=== PATIENT | male | born 1950 | race Caucasian/White ===

== ENCOUNTER 2019-12-05 04:03 | Observation (INO) | payer MEDICARE, OTHER ==
--- NOTE | 2019-12-05 04:13 | ED ---
Chest Pain HPI - General Stated Complaint: Chest Pain Time Seen by Provider: 12/05/19 04:11 Source: RN notes reviewed, old records reviewed Mode of arrival: EMS Limitations: no limitations - History of Present Illness Initial Comments: This is a 69-year-old male DF for evaluation regards to chest pain today. Patient has history of diabetes high blood pressure, remote History of smoking. Patient's here camping is weak and noticed chest pain we will to the bathroom tonight. The chest pain was substernal with some shortness of breath and some tightness heaviness difficulty raising his chest. No significant diaphoresis or sweating. No current shortness of breath. No history of heart disease no history of chest pain no history of prior stress test or heart evaluation MD Complaint: chest pain (Substernal) -: hour(s) Onset: during rest Pain Location: substernal Pain Radiation: none Quality: tightness, aching Consistency: constant Improves With: nothing Worsens With: nothing Anginal Symptoms: other (None) Other Symptoms: palpitations (. Patient having PVCs on EKG and monitor) Treatments Prior to Arrival: none - Related Data Allergies Allergy/AdvReac Type Severity Reaction Status Date / Time Sulfa (Sulfonamide Allergy Unknown Verified 12/05/19 04:40 Antibiotics) Review of Systems ROS Statement: Those systems with pertinent positive or pertinent negative responses have been documented in the HPI. ROS Other: All systems not noted in ROS Statement are negative. EKG Findings - EKG Comments: EKG Findings:: EKG is sinus rhythm of 66 FL 162 QRS 106 QTC 417 General Exam General appearance: alert, in no apparent distress Head exam: Present: atraumatic, normocephalic, normal inspection Eye exam: Present: normal appearance, PERRL, EOMI. Absent: scleral icterus, conjunctival injection, periorbital swelling ENT exam: Present: normal exam, mucous membranes moist Neck exam: Present: normal inspection. Absent: tenderness, meningismus, lymphadenopathy Respiratory exam: Present: normal lung sounds bilaterally. Absent: respiratory distress, wheezes, rales, rhonchi, stridor Cardiovascular Exam: Present: regular rate, normal rhythm, normal heart sounds. Absent: systolic murmur, diastolic murmur, rubs, gallop, clicks GI/Abdominal exam: Present: soft, normal bowel sounds. Absent: distended, tenderness, guarding, rebound, rigid Extremities exam: Present: normal inspection, full ROM, normal capillary refill. Absent: tenderness, pedal edema, joint swelling, calf tenderness Back exam: Present: normal inspection Neurological exam: Present: alert, oriented X3, CN II-XII intact Psychiatric exam: Present: normal affect, normal mood Skin exam: Present: warm, dry, intact, normal color. Absent: rash Course Vital Signs 12/05/19 04:05 Temperature 98.5 F Pulse Rate 80 Respiratory 18 Rate Blood Pressure 140/86 O2 Sat by Pulse 98 Oximetry - Reevaluation(s) Reevaluation #1: 12/05/19 05:56 Medical records reviewed Reevaluation #2: 12/05/19 05:56 Patient still with persistent chest pain - Consultations Consultation #1: Spoke with sound who agrees to admit this patient Chest Pain MDM - MDM 69 male evaluation of chest pain today. Patient does have significant cardiac risk including high blood pressure possibly borderline cholesterol diabetes. No history of smoking and his age. Patient will be admitted for cardiac observation Disposition Clinical Impression: Chest pain Disposition: ADMITTED IP TO THIS HOSP Condition: Undetermined Instructions (If sedation given, give patient instructions): Chest Pain (ED) Is patient prescribed a controlled substance at d/c from ED?: No Referrals: Geovani Pulliam DO [Primary Care Provider] - 1-2 days
[2019-12-05 05:00] LABS: Eosinophils % (A) 4 %; HCT 46.1 % (39.0-53.0); HGB 15.5 gm/dL (13.0-17.5); Lymphocytes % (A) 22 %; MCH 30.3 pg (25.0-35.0); MCHC 33.6 g/dL (31.0-37.0); Mean Platelet Volume 7.6; Monocytes % (A) 5 %; Neutrophils % (A) 66 %; Platelet Count 248 k/uL (150-450); RBC 5.12 m/uL (4.30-5.90); RDW 12.8 % (11.5-15.5); WBC 8.8 k/uL (3.8-10.6)
[2019-12-05 05:01] LABS: Basophils # (A) 0.1 k/uL (0-0.2); Basophils % (A) 1 %; Eosinophils # (A) 0.4 k/uL (0-0.7); Monocytes # (A) 0.5 k/uL (0-1.0); Neutrophils # (A) 5.8 k/uL (1.3-7.7)
--- NOTE | 2019-12-05 05:01 | XR ---
EXAMINATION TYPE: XR chest 2V DATE OF EXAM: 12/05/2019 COMPARISON: NONE HISTORY: Chest pain TECHNIQUE: FINDINGS: Heart and mediastinum are normal. Lungs are clear. Diaphragm is normal. There are chest leighton ds. Bony thorax is intact. Pulmonary vascularity is normal. IMPRESSION: Normal chest
[2019-12-05 05:09] LABS: ALT 23 U/L (4-49); AST 22 U/L (17-59); African American GFR (CKD) >90 (>60 ml/min/1.73 sqM); Albumin 4.1 g/dL (3.5-5.0); Alkaline Phosphatase 159 U/L (38-126); Anion Gap 11 mmol/L; Blood Urea Nitrogen 19 mg/dL (9-20); Calcium 9.5 mg/dL (8.4-10.2); Carbon Dioxide 19 mmol/L (22-30); Chloride 105 mmol/L (98-107); Glucose 173 mg/dL (74-99); Magnesium 1.7 mg/dL (1.6-2.3); Non-African American GFR(CKD) >90 (>60 ml/min/1.73 sqM); Partial Thromboplastin Time 27.6 sec (22.0-30.0); Potassium 3.5 mmol/L (3.5-5.1); Prothrombin Time 10.1 sec (9.0-12.0); Sodium 135 mmol/L (137-145); Total Bilirubin 0.6 mg/dL (0.2-1.3); Total Protein 6.5 g/dL (6.3-8.2)
[2019-12-05] MEDS ORDERED: NITROGLYCERIN SL TABS 0.4 MG TAB SUBLINGUAL PRN (05:53)
[2019-12-05] MEDS ORDERED: ASPIRIN 81 MG PO STA (05:53)
[2019-12-05] MEDS ORDERED: MORPHINE SULFATE 4 MG/ML SYRINGE IV PRN (05:53)
[2019-12-05] MEDS ORDERED: HEPARIN SODIUM,PORCINE 5,000 UNIT/ML 1 ML VIAL IV PRN (08:20)
[2019-12-05] MEDS ORDERED: HEPARIN SODIUM,PORCINE 5,000 UNIT/ML 1 ML VIAL IV ONE (08:20)
[2019-12-05] MEDS ORDERED: ALPRAZolam 0.5 MG TAB PO PRN (08:22)
[2019-12-05] MEDS ORDERED: ALPRAZolam 0.25 MG TAB PO PRN (08:22)
[2019-12-05] MEDS ORDERED: SODIUM CHLORIDE 0.9% 1,000 ML in EMPTY BAG 1 BAG IV ONE (08:22)
[2019-12-05] MEDS ORDERED: HEPARIN SOD,PORK IN 0.45% NACL 25,000 UNIT in 0.45% NACL 1 250ML.BAG IV SCH (08:30)
[2019-12-05 08:38] LABS: Basophils # (A) 0.1 k/uL (0-0.2); Basophils % (A) 1 %; Eosinophils # (A) 0.2 k/uL (0-0.7); Eosinophils % (A) 2 %; HCT 46.5 % (39.0-53.0); HGB 15.8 gm/dL (13.0-17.5); Lymphocytes % (A) 22 %; MCH 30.7 pg (25.0-35.0); MCHC 33.9 g/dL (31.0-37.0); MCV 90.4 fL (80.0-100.0); Mean Platelet Volume 7.6; Monocytes # (A) 0.5 k/uL (0-1.0); Monocytes % (A) 5 %; Neutrophils # (A) 6.3 k/uL (1.3-7.7); Neutrophils % (A) 70 %; Platelet Count 232 k/uL (150-450); RBC 5.15 m/uL (4.30-5.90); RDW 12.6 % (11.5-15.5)
[2019-12-05 08:42] LABS: Cholesterol 105 mg/dL (<200); HDL Cholesterol 45 mg/dL (40-60); LDL Cholesterol,Calculated 40 mg/dL (0-99); Triglycerides 102 mg/dL (<150)
[2019-12-05 08:53] LABS: Partial Thromboplastin Time 28.2 sec (22.0-30.0); Prothrombin Time 10.2 sec (9.0-12.0)
[2019-12-05] MEDS ORDERED: amLODIPine 10 MG TAB PO SCH (09:00)
[2019-12-05] MEDS ORDERED: METOPROLOL TARTRATE 25 MG TAB PO SCH (09:00)
[2019-12-05] MEDS: LOSARTAN 50 MG TAB PO SCH (09:22)
[2019-12-05] MEDS: METOPROLOL TARTRATE 12.5 MG TAB PO SCH ×2 (09:22→20:44)
[2019-12-05] MEDS: hydrALAZINE HCL 50 MG TAB PO SCH ×2 (09:22→20:42)
--- NOTE | 2019-12-05 10:17 | P.HPIM ---
History of Present Illness H&P Date: 12/05/19 Chief Complaint: Chest pain This is a 69-year-old white male who reported to the hospital with substernal chest pain. He woke up at around 3:30 AM to go to the bathroom and noted moderate instability chest pain. He describes the pain as dull substernal radiating. He denies subjective fever or chills, no shortness of breath, no dizziness no loss of consciousness. He denies abdominal pain nausea or vomiting. He has few intermittent dry coughs that spontaneously resolved. The time of examination patient is in bed, he does not appear to be in distress, his is at bedside. Review of Systems 10 systems reviewed, pertinent positive and negative findings as in HPI, no nausea or vomiting. Chest pain resolved. Past Medical History Past Medical History: Diabetes Mellitus, Hypertension Additional Past Medical History / Comment(s): Pt states he has had hypertension since 2003. Pt states he has Type 2 diabetes and takes metformin to control it. History of Any Multi-Drug Resistant Organisms: None Reported Past Surgical History: Prostate Surgery Additional Past Surgical History / Comment(s): Pt states he had his prostate removed on April 12, 2019. Past Psychological History: Anxiety Smoking Status: Former smoker Past Alcohol Use History: Rare Past Drug Use History: None Reported Medications and Allergies Home Medications Medication Instructions Recorded Confirmed Type Atorvastatin [Lipitor] 10 mg PO HS 12/05/19 12/05/19 History Losartan Potassium 100 mg PO DAILY 12/05/19 12/05/19 History amLODIPine [Norvasc] 10 mg PO DAILY 12/05/19 12/05/19 History hydrALAZINE HCL [Apresoline] 50 mg PO BID 12/05/19 12/05/19 History metFORMIN HCL 850 mg PO BID 12/05/19 12/05/19 History Allergies Allergy/AdvReac Type Severity Reaction Status Date / Time Sulfa (Sulfonamide Allergy Unknown Verified 12/05/19 08:02 Antibiotics) Physical Exam Vitals: Vital Signs Temp Pulse Pulse Resp BP BP Pulse Ox 12/05/19 09:00 98.1 F 77 16 151/89 98 12/05/19 06:58 98.1 F 67 18 132/72 100 12/05/19 05:57 97.7 F 63 18 137/86 97 12/05/19 04:05 98.5 F 80 18 140/86 98 Intake and Output 07/29/20 07/30/20 07/30/20 22:59 06:59 14:59 Other: # Voids 1 Weight 102.058 kg Constitutional: No acute distress, conversant, pleasant Eyes: Anicteric sclerae, moist conjunctiva, no lid-lag, PERRLA ENMT: NC/AT,Oropharynx clear, no erythema, exudates Neck:Supple, FROM, no masses, or JVD, No carotid bruits; No thyromegaly Lungs: Clear to auscultation, Clear to percussion, Normal respiratory effort, no accessory muscle use Cardiovascular: Heart regular in rate and rhythm, No murmurs, gallops, or rubs no peripheral edema Abdominal: Soft Nontender, nom distended, no guarding, no rebound or rigidity, Normoactive bowel sounds ,obese Skin: Normal temperature, tone, texture, turgor, No induration No subcutaneous nodules, No rash, lesions, No ulcers Extremities:No digital cyanosis No clubbing, Pedal pulses intact and symmetrical Radial pulses intact and symmetrical Normal gait and station, No calf tenderness Psychiatric: Alert and oriented to person, place and time, Appropriate affect Intact judgement Neuro: Muscles Strength 5/5 in all 4 extremities, Sensation to light touch grossly present throughout, Cranial nerves II-XII grossly intact. No focal sensory deficits Results CBC & Chem 7: 12/05/19 07:31 12/05/19 04:53 Labs: Abnormal Lab Results - Last 24 Hours (Table) 12/05/19 Range/Units 04:53 Sodium 135 L (137-145) mmol/L Carbon Dioxide 19 L (22-30) mmol/L Glucose 173 H (74-99) mg/dL Alkaline Phosphatase 159 H (38-126) U/L Thrombosis Risk Factor Assmnt - Choose All That Apply Any of the Below Risk Factors Present?: Yes Each Factor Represents 1 point: Obesity (BMI >25) Other Risk Factors: Yes Each Risk Factor Represents 2 Points: Age 61-74 years Thrombosis Risk Factor Assessment Total Risk Factor Score: 3 Thrombosis Risk Factor Assessment Level: Moderate Risk Assessment and Plan Plan: 1. Chest pain number intermittent, unspecified etiology: Negative cardiac enzymes so far, continue to check cardiac enzymes, negative d-dimer, continue on telemetry, cardiology consultation, input appreciated, plan for cardiac catheterization today. Patient is on heparin drip morphine after listening, aspirin and statin losartan and metoprolol. 2. Hyperlipidemia: Continue atorvastatin 3. Essential hypertension: Continue outpatient medications losartan hydralazine metoprolol and Norvasc 4. Diabetes type 2 with hyperglycemia: Place on insulin sliding scale 5. Suspected obstructive sleep apnea: He will need sleep study evaluation as an outpatient 6. Mild metabolic acidosis, unspecified significance: Bicarbonate 19, monitor. 7. Obesity: BMI 32.3 Treatment Plan discussed with the patient and his at bedside. DVT prophylaxis: Heparin drip Disposition: Home in 1-2 days, pending clinical progression
[2019-12-05] MEDS ORDERED: IV FLUID CONTINUATION 900 ML IV ONE (10:44)
[2019-12-05] MEDS ORDERED: MIDAZOLAM 2 MG/2 ML VIAL IV ONE (10:59)
--- NOTE | 2019-12-05 11:00 | ECHOF ---
Referral Reason:chest pain MEASUREMENTS -------- HEIGHT: 177.8 cm WEIGHT: 102.1 kg BP: RVIDd: 3.1 cm (< 3.3) IVSd: 1.5 cm (0.6 - 1.1) LVIDd: 3.8 cm (3.9 - 5.3) LVPWd: 1.4 cm (0.6 - 1.1) IVSs: 1.8 cm LVIDs: 1.3 cm LVPWs: 1.9 cm LAESV Index (A-L): 27.22 ml/m Ao Diam: 3.2 cm (2.0 - 3.7) AV Cusp: 1.8 cm (1.5 - 2.6) LA Diam: 3.4 cm (2.7 - 3.8) MV EXCURSION: 18.048 mm (> 18.000) MV EF SLOPE: 66 mm/s (70 - 150) EPSS: 0.2 cm MV E Sarbjit: 0.92 m/s MV DecT: 214 ms MV A Sarbjit: 1.08 m/s MV E/A Ratio: 0.85 AR PHT: 286 ms RAP: 5.00 mmHg RVSP: 19.39 mmHg FINDINGS -------- Sinus rhythm with extra systolic beats. This was a technically adequate study. The left ventricular size is normal. There is moderate concentric left ventricular hypertrophy. O verall left ventricular systolic function is normal with, an EF between 55 - 60 %. Normal LAP. Grad e 1 Diastolic Dysfunction. The right ventricle is normal in size. The left atrial size is normal. Normal LA size by volume 22+/-6 ml/m2. The right atrial size is normal. Interatrial and interventricular septum intact. The aortic valve is trileaflet and appears structurally normal. Trace amount of aortic regurgitatio n. The mitral valve is normal. The mitral valve leaflets are mildly thickened. Mild mitral regurgita tion is present. The tricuspid valve appears structurally normal. Mild tricuspid regurgitation present. Right vent ricular systolic pressure is normal at < 35 mmHg. There is no pulmonic regurgitation present. The aortic root size is normal. Normal inferior vena cava with normal inspiratory collapse consistent with estimated right atrial pre ssure of 5 mmHg. There is no pericardial effusion. CONCLUSIONS -------- 1. There is moderate concentric left ventricular hypertrophy. 2. Overall left ventricular systolic function is normal with, an EF between 55 - 60 %. 3. Normal LAP. Grade 1 Diastolic Dysfunction. 4. Trace amount of aortic regurgitation. 5. The mitral valve leaflets are mildly thickened. 6. Mild mitral regurgitation is present. 7. Mild tricuspid regurgitation present. INFANTRY OPERATIONS SPECIALIST: Va Knight RDCS
[2019-12-05] MEDS ORDERED: LIDOCAINE 1% INJ 10MG/ML (20 ML MDV) SQ ONE (11:02)
[2019-12-05] MEDS ORDERED: VERAPAMIL SYRINGE (5 MG/10 ML) INTRAARTER ONE (11:04)
[2019-12-05] MEDS ORDERED: HEPARIN SODIUM 1,000 UN/ML (10ML VL) IV ONE (11:05)
--- NOTE | 2019-12-05 11:18 | P.CRDCN ---
History of Present Illness History of present illness: HISTORY OF PRESENTING ILLNESS This is a pleasant 69-year-old male past medical history significant for hypertension, dyslipidemia and diabetes mellitus. 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 We have been asked to see in consultation for chest pain. He lives in [facility] and is here in the area camping for the week. He states he woke up last night around 3 AM with pain in the midsternal region. He got up to use the bathroom and felt short of breath and diaphoretic. The discomfort in his chest persisted for approximately 20 minutes prompting him to come to the hospital for further evaluation. There was no radiation to the arm, back, neck or jaw. He denies nausea, vomiting or palpitations. His chest pain has since subsided and he is seen resting comfortably in the room with his at the bedside. DIAGNOSTICS EKG reveals sinus mechanism with incomplete left bundle branch block. There is no old EKG for comparison. Chest xray negative for an acute cardiopulmonary process. Laboratory reviewed, CBC unremarkable, d-dimer 0.47, sodium 135, potassium 3.5, creatinine 0.8, magnesium 1.7, first 2 troponins are negative and 30 0.042. NT proBNP 145, LDL 40 and HDL 45. Current cardiac medications include hydralazine 50 mg twice a day, amlodipine 10 mg daily, losartan 100 mg daily and atorvastatin 10 mg at bedtime. REVIEW OF SYSTEMS At the time of my exam: CONSTITUTIONAL: Denies fever or chills. CARDIOVASCULAR: Denies chest pain, shortness of breath, orthopnea, PND or palpitations. RESPIRATORY: Denies cough. GASTROINTESTINAL: Denies abdominal pain, diarrhea, constipation, nausea or vomiting. MUSCULOSKELETAL: Denies myalgias. NEUROLOGIC: Denies numbness, tingling or weakness. ENDOCRINE: Denies fatigue, weight change, polydipsia or polyurina. GENITOURINARY: Denies burning, hematuria or urgency with micturation. HEMATOLOGIC: Denies history of anemia or bleeding. PHYSICAL EXAMINATION Blood pressure 151/89 heart rate 77 afebrile and maintaining oxygen saturation on room air. CONSTITUTIONAL: No apparent distress. HEENT: Head is normocephalic. Pupils are equal, round. Sclerae anicteric. Mucous membranes of the mouth are moist. No JVD. No carotid bruit. CHEST EXAMINATION: Lungs are clear to auscultation. No chest wall tenderness is noted on palpation or with deep breathing. HEART EXAMINATION: Regular rate and rhythm. S1, S2 heard. No murmurs, gallops or rub. ABDOMEN: Soft, nontender. Positive bowel sounds. EXTREMITIES: 2+ peripheral pulses, no lower extremity edema and no calf tenderness. NEUROLOGIC EXAMINATION: Patient is awake, alert and oriented x3. ASSESSMENT Unstable angina Non-ST elevated myocardial infarction Hypertension Dyslipidemia Diabetes mellitus Obesity, BMI 32 PLAN Recommend proceeding with cardiac catheterization. I have discussed the risks, benefits and alternative therapies for the above-mentioned procedure and for both sedation/analgesia as well as necessary blood product administration, if indicated, as they pertain to this patient. The patient has indicated understanding and acceptance of the risks and procedures discussed. Questions have been answered appropriately and he is agreeable to move forward with the above stated procedure. Initiate Lopressor 12.5 mg twice a day and heparin infusion. Obtain 2-D echocardiogram and Doppler study to assess cardiac structure and function. Further recommendations to follow based upon clinical course. Thank you kindly for this consultation. Nurse Practitioner note has been reviewed, I agree with a documented findings and plan of care. Patient was seen and examined. Past Medical History Past Medical History: Diabetes Mellitus, Hypertension Additional Past Medical History / Comment(s): Pt states he has had hypertension since 2004. Pt states he has Type 2 diabetes and takes metformin to control it. History of Any Multi-Drug Resistant Organisms: None Reported Past Surgical History: Prostate Surgery Additional Past Surgical History / Comment(s): Pt states he had his prostate removed on April 12, 2019. Past Psychological History: Anxiety Smoking Status: Former smoker Past Alcohol Use History: Rare Past Drug Use History: None Reported Medications and Allergies Home Medications Medication Instructions Recorded Confirmed Type Atorvastatin [Lipitor] 10 mg PO HS 12/05/19 12/05/19 History Losartan Potassium 100 mg PO DAILY 12/05/19 12/05/19 History amLODIPine [Norvasc] 10 mg PO DAILY 12/05/19 12/05/19 History hydrALAZINE HCL [Apresoline] 50 mg PO BID 12/05/19 12/05/19 History metFORMIN HCL 850 mg PO BID 12/05/19 12/05/19 History Allergies Allergy/AdvReac Type Severity Reaction Status Date / Time Sulfa (Sulfonamide Allergy Unknown Verified 12/05/19 08:02 Antibiotics) Physical Exam Vitals: Vital Signs Temp Pulse Pulse Resp BP BP Pulse Ox 12/05/19 06:58 98.1 F 67 18 132/72 100 12/05/19 05:57 97.7 F 63 18 137/86 97 12/05/19 04:05 98.5 F 80 18 140/86 98 Intake and Output 12/04/19 12/05/19 12/05/19 22:59 06:59 14:59 Other: Weight 102.058 kg Results 12/05/19 07:31 12/05/19 04:53 Cardiac Enzymes 12/05/19 12/05/19 Range/Units 04:53 04:53 AST 22 (17-59) U/L Troponin I <0.012 (0.000-0.034) ng/mL Coagulation 12/05/19 Range/Units 04:53 PT 10.1 (9.0-12.0) sec APTT 27.6 (22.0-30.0) sec CBC 12/05/19 Range/Units 04:53 WBC 8.8 (3.8-10.6) k/uL RBC 5.12 (4.30-5.90) m/uL Hgb 15.5 (13.0-17.5) gm/dL Hct 46.1 (39.0-53.0) % Plt Count 248 (150-450) k/uL Comprehensive Metabolic Panel 12/05/19 Range/Units 04:53 Sodium 135 L (137-145) mmol/L Potassium 3.5 (3.5-5.1) mmol/L Chloride 105 (98-107) mmol/L Carbon Dioxide 19 L (22-30) mmol/L BUN 19 (9-20) mg/dL Creatinine 0.80 (0.66-1.25) mg/dL Glucose 173 H (74-99) mg/dL Calcium 9.5 (8.4-10.2) mg/dL AST 22 (17-59) U/L ALT 23 (4-49) U/L Alkaline Phosphatase 159 H (38-126) U/L Total Protein 6.5 (6.3-8.2) g/dL Albumin 4.1 (3.5-5.0) g/dL Current Medications Generic Name Dose Route Start Last Admin Trade Name Freq PRN Reason Stop Dose Admin Aspirin 325 mg 12/06/19 09:00 Aspirin PO DAILY [facility] Metoprolol Tartrate 25 mg 12/05/19 09:00 Lopressor PO BID DEEPALI Morphine Sulfate 4 mg 12/05/19 05:53 Morphine Sulfate (Inj) IV Q4HR PRN Chest Pain Nitroglycerin 0.4 mg 12/05/19 05:53 Nitrostat SUBLINGUAL Q5M PRN Chest Pain Intake and Output 12/04/19 12/05/19 12/05/19 22:59 06:59 14:59 Other: Weight 102.058 kg 12/05/19 04:53 12/05/19 04:53
[2019-12-05] MEDS ORDERED: BIVALIRUDIN 250 MG in SODIUM CHLORIDE 0.9% 50 ML IV ONE (11:21)
[2019-12-05] MEDS ORDERED: BIVALIRUDIN BOLUS 250 MG/50 ML IV ONE (11:21)
[2019-12-05] MEDS ORDERED: IOPAMIDOL-370 100ML BTL INJ ONE ×3 (11:26→12:01)
[2019-12-05] MEDS: NITROGLYCERIN 1000MCG/10ML SYRINGE INTRACORON ONE ×3 (11:29→12:00)
[2019-12-05] MEDS ORDERED: CLOPIDOGREL 75 MG TAB ONE (12:09)
[2019-12-05] MEDS ORDERED: CLOPIDOGREL 75 MG TAB PO ONE (12:16)
[2019-12-05] MEDS: SODIUM CHLORIDE 0.9% 1,000 ML IV SCH ×2 (12:32→16:38)
[2019-12-05 12:36] LABS: Glucose,Whole Blood 139 mg/dL (75-99)
[2019-12-05 16:27] LABS: Glucose,Whole Blood 142 mg/dL (75-99)
[2019-12-05] MEDS: INSULIN ASPART (NovoLOG) 100 UNIT/ML VIAL SQ SCH ×2 (16:41→20:48)
--- NOTE | 2019-12-05 17:18 | CC ---
CARDIAC CATHETERIZATION REPORT CARDIAC CATHETERIZATION AND PCI REPORT: Performed by Dr. Ashley Farah. DATE OF SERVICE: 12/05/2019 PROCEDURE: 1. Left heart catheterization and coronary angiography. 2. PTCA and stenting of the major diagonal branch with a drug-eluting stent. 3. PTCA and stenting of mid circumflex with a drug-eluting stent. PERFORMED BY: Dr. Ashley Farah. ANESTHESIA: Moderate conscious sedation time was 66 minutes. The patient was administered Versed. Oxygen saturation, hemodynamics and EKG were monitored closely. CLINICAL INFORMATION: Boyd Sandoval is a 69-year-old gentleman with history of hypertension, diabetes, and hyperlipidemia who was camping here in [place] and developed chest pain, came into the hospital yesterday. No troponin rise, but symptoms were classic. He has significant risk factors, advised coronary angiography after due discussion regarding risks, benefits, and options. PROCEDURE NOTE: Under local anesthesia and strict aseptic precautions a 6-Thai introducer placed in the right radial artery. Using a JL3.5 and a JR4 catheter, I performed coronary angiography and the same right catheter was used to check LV pressures. LV gram was not performed. Following this, I performed the intervention procedure of the major diagonal branch and mid circumflex. I then applied a TR band as per protocol with good saturation in the fingers of the right hand was about 93%. Good sagittal finger of the right hand of 93%. Patient tolerated the procedure well. CARDIAC CATHETERIZATION FINDINGS: Left ventricular end-diastolic pressure was 10 mmHg without any gradient across the aortic valve. CORONARY ANGIOGRAPHY FINDINGS: RIGHT CORONARY ARTERY: Dominant vessel has no significant disease in the proximal and midportion and distally bifurcates into PDA and PLV. PLV has a 50% to 55% ostial lesion as it comes off from the dominant RCA. The PDA has no ostial lesion, but in the mid and distal portion there are multiple areas of narrowing and the narrowing extends almost to the tip of the vessel and there is about 80%-90% distally. PDA is therefore a diffusely diseased vessel in the mid and distal portion. PLV has a 50% to 55% proximal lesion and this is a dominant RCA. LEFT MAIN CORONARY ARTERY: Short patent vessel, free of significant disease that bifurcates immediately into LAD and circumflex. There is moderate calcification in the left main noted. LEFT ANTERIOR DESCENDING CORONARY ARTERY: Good caliber vessel gives off a high first diagonal branch which appears small in caliber, has a 99% stenosis with sluggish flow. Second diagonal is free of significant disease but appears to be diffusely diseased vessel. LAD has multiple areas of 30% to 35% narrowing but no critical stenosis, runs all the way to the apex and curves over the apex to supply the inferoapical portion of left ventricle. The diagonal therefore is a fair caliber vessel, has a 99% proximal stenosis with sluggish flow. LEFT POSTERIOR CIRCUMFLEX CORONARY ARTERY: Nondominant vessel, gives off a first obtuse marginal that has diffuse disease and distally bifurcates into 2 branches and superior and inferior branch. The inferior branch has a 95% stenosis, smaller in caliber and distribution. The superior branch has a 40% narrowing. After the origin of this obtuse marginal, the circumflex runs in the AV groove and there is a 95% stenosis and from this comes off a left atrial circumflex branch and a posterolateral branch. Mid circumflex therefore has a 95% stenosis. LEFT VENTRICULOGRAM: Left ventriculogram was not performed. FINAL IMPRESSION: This patient has a right-dominant system, normal filling pressures. no gradient across the aortic valve. The PDA branch of our dominant RCA has diffuse disease in the mid and distal portion. The major diagonal branch of LAD has a 95% stenosis and mid circumflex has a 95% stenosis. There are minor irregularities in other vessels. There is moderate calcification throughout. LV gram was not performed. RECOMMENDATIONS: I recommended PCI of the major diagonal and circumflex and proceeded to perform this in the same setting. PCI PROCEDURE DETAILS: A left 3.5 curved Patrice catheter was used to cannulate the left coronary artery. This was a 6-Thai guide catheter. A run-through wire was used to cross the lesion in the diagonal. Predilatation was performed with a 2.25 caliber 12 mm NC Trek balloon. I then deployed a 12 mm long 2.25 caliber Xience stent. The midportion was not fully expanded. I took a 2.5 caliber 8 mm NC Trek balloon and gave multiple inflations within the proximal 2/3 of the stent. Excellent angiographic result was achieved. There was still a small area which I could not open completely with the residual stenosis of 10%. Excellent angiographic result was achieved. I then turned my attention into the circumflex branch. The same wire was advanced to the circumflex branch. A 2.25 caliber 12 NC Trek balloon was used to pre-dilate the lesion. I then deployed an 8 mm long 2.25 caliber Xience stent at the ostium of the circumflex marginal right after it takes off. Excellent angiographic result was achieved. Stent was deployed at 11 atmospheres. Patient had chest discomfort on both occasions, but no EKG changes. Excellent angiographic result without complication was achieved. The patient received Angiomax bolus and infusion as per protocol and he also received 600 mg of Plavix. Excellent angiographic result was achieved of both major diagonal branch and circumflex, with drug-eluting stents. I expect the patient to be discharged tomorrow. Results were discussed with the patient and his . MMODL / IJN: [id number] /
[2019-12-05] MEDS ORDERED: ACETAMINOPHEN TAB 325 MG TAB PO PRN (17:34)
[2019-12-05 20:37] LABS: Glucose,Whole Blood 119 mg/dL (75-99)
[2019-12-05] MEDS ORDERED: ATORVASTATIN 80 MG TAB PO SCH (21:00)
[2019-12-05] MEDS ORDERED: ATORVASTATIN 10 MG TAB PO SCH (21:00)
[2019-12-06 06:39] LABS: Glucose,Whole Blood 140 mg/dL (75-99)
[2019-12-06] MEDS: INSULIN ASPART (NovoLOG) 100 UNIT/ML VIAL SQ SCH (06:42)
[2019-12-06 07:31] LABS: Basophils # (A) 0.1 k/uL (0-0.2); Basophils % (A) 1 %; Eosinophils # (A) 0.3 k/uL (0-0.7); Eosinophils % (A) 3 %; HCT 50.5 % (39.0-53.0); HGB 16.9 gm/dL (13.0-17.5); Lymphocytes # (A) 2.5 k/uL (1.0-4.8); Lymphocytes % (A) 25 %; MCH 30.4 pg (25.0-35.0); MCHC 33.4 g/dL (31.0-37.0); Mean Platelet Volume 7.3; Monocytes # (A) 0.6 k/uL (0-1.0); Monocytes % (A) 6 %; Neutrophils # (A) 6.4 k/uL (1.3-7.7); Neutrophils % (A) 63 %; Platelet Count 280 k/uL (150-450); RBC 5.55 m/uL (4.30-5.90); RDW 12.7 % (11.5-15.5); WBC 10.1 k/uL (3.8-10.6)
[2019-12-06 07:51] VITALS: BP 141/85; PULSE 67; RESP 16; TEMP 98.1
[2019-12-06] MEDS: hydrALAZINE HCL 50 MG TAB PO SCH (07:51)
[2019-12-06 07:52] LABS: ALT 28 U/L (4-49); AST 30 U/L (17-59); African American GFR (CKD) >90 (>60 ml/min/1.73 sqM); Albumin 4.5 g/dL (3.5-5.0); Alkaline Phosphatase 98 U/L (38-126); Anion Gap 10 mmol/L; Blood Urea Nitrogen 10 mg/dL (9-20); Calcium 9.7 mg/dL (8.4-10.2); Carbon Dioxide 23 mmol/L (22-30); Chloride 106 mmol/L (98-107); Glucose 141 mg/dL (74-99); Non-African American GFR(CKD) >90 (>60 ml/min/1.73 sqM); Potassium 4.1 mmol/L (3.5-5.1); Sodium 139 mmol/L (137-145); Total Bilirubin 1.1 mg/dL (0.2-1.3)
[2019-12-06] MEDS: LOSARTAN 50 MG TAB PO SCH (07:52)
[2019-12-06] MEDS: METOPROLOL TARTRATE 12.5 MG TAB PO SCH (07:52)
[2019-12-06] MEDS ORDERED: amLODIPine 5 MG TAB PO SCH (09:00)
[2019-12-06] MEDS ORDERED: ASPIRIN 325 MG TAB PO SCH (09:00)
[2019-12-06] MEDS ORDERED: ASPIRIN 81 MG PO SCH (09:00)
[2019-12-06] MEDS ORDERED: CLOPIDOGREL 75 MG TAB PO SCH (09:00)
--- NOTE | 2019-12-06 10:06 | P.PN ---
Subjective HISTORY OF PRESENTING ILLNESS This is a pleasant 69-year-old male past medical history significant for hypertension, dyslipidemia and diabetes mellitus. He denies prior history of coronary artery disease and does not follow with a stunt person for any reason. He underwent cardiac catheterization via the right radial artery yesterday revealing RCA with no significant disease, PLV with 50-55% ostial lesion, PDA with multiple areas of narrowing in the mid to distal portion, left main no significant disease, LAD with multiple areas of narrowing approximately 30-35% with no critical stenosis, first diagonal branch with a 99% stenosis, circumflex artery with a 95% stenosis in the midportion, he underwent successful PTCA and stenting of the major diagonal branch and the mid circumflex. He has been initiated on dual antiplatelet therapy. He is seen and examined sitting up in bed in no acute distress. He has no symptoms of chest discomfort, shortness of breath, dizziness or palpitations. Repeat EKG this morning reveals sinus m echanism with no ST or T wave abnormalities noted, heart rate of 59. Echocardiogram obtained reveals preserved LV systolic function with ejection fraction 55-60%, grade 1 diastolic dysfunction, mild MR and mild TR. PHYSICAL EXAMINATION CONSTITUTIONAL: No apparent distress. HEENT: Head is normocephalic. Pupils are equal, round. Sclerae anicteric. Mucous membranes of the mouth are moist. No JVD. No carotid bruit. CHEST EXAMINATION: Lungs are clear to auscultation. No chest wall tenderness is noted on palpation or with deep breathing. HEART EXAMINATION: Regular rate and rhythm. S1, S2 heard. No murmurs, gallops or rub. EXTREMITIES: 2+ peripheral pulses, no lower extremity edema and no calf tenderness. ASSESSMENT Unstable angina Non-ST elevated myocardial infarction Hypertension Dyslipidemia Diabetes mellitus Obesity, BMI 32 PLAN Stable for discharge on current medical regimen. The importance of dual antiplatelet therapy discussed in great detail with the patient. Prescriptions haven't sent to the pharmacy. He will follow-up in the office with Dr. Farah in one week. Nurse Practitioner note has been reviewed, I agree with a documented findings and plan of care. Patient was seen and examined. Objective - Vital Signs Vital signs: Vital Signs Temp 98.1 F 12/06/19 07:50 Pulse 67 12/06/19 08:02 Resp 16 12/06/19 08:02 BP 141/85 12/06/19 07:50 Pulse Ox 98 07/31/20 07:50 Intake & Output 12/05/19 12/06/19 12/06/19 18:59 06:59 18:59 Intake Total 815 Output Total 575 Balance 240 Intake: IV 450 Oral 365 Output: Urine 575 Other: Voiding Method Toilet Toilet Toilet # Voids 3 1 - Labs CBC & Chem 7: 12/06/19 07:10 12/06/19 07:10 Labs: Abnormal Lab Results - Last 24 Hours (Table) 12/05/19 12/05/19 12/05/19 Range/Units 10:12 12:34 16:25 Glucose (74-99) mg/dL POC Glucose (mg/dL) 139 H 142 H (75-99) mg/dL Troponin I 0.042 H* (0.000-0.034) ng/mL 12/05/19 12/06/19 12/06/19 Range/Units 20:36 06:37 07:10 Glucose 141 H (74-99) mg/dL POC Glucose (mg/dL) 119 H 140 H (75-99) mg/dL Troponin I (0.000-0.034) ng/mL
[2019-12-06 11:31] LABS: Glucose,Whole Blood 140 mg/dL (75-99)
--- NOTE | 2019-12-06 20:53 | P.DS ---
Providers Date of admission: 12/05/19 05:53 Expected date of discharge: 12/06/19 Attending physician: Rito Read MD Consults: 12/05/19 05:53 Consult Physician Urgent Consulting Provider: Severino Rios Consult Reason/Comments: cp Do you want consulting provider notified?: Yes Primary care physician: Geovani Pulliam DO Hospital Course: Discharge Diagnosis: Non-ST segment elevated myocardial infarction Hypertension Dyslipidemia Diabetes mellitus type 2 Obesity with BMI 32 Hospital Course: Patient is a 69-year-old male with diabetes, hypertension, and prior tobacco abuse who presented with substernal chest pain. His initial troponins were negative. He was started on aspirin in the ER. He was seen by cardiology. His troponin did elevate slightly. He underwent cardiac catheterization and did show blockages in the left circumflex and LAD first diagonal branch. He underwent successful stenting of these 2 lesions with a drug-eluting stent. He tolerated the procedure well. His blood pressure was well controlled postoperatively. He has also noted have a good cholesterol profile. He was started on aspirin, Plavix, his Lipitor was increased to 80, he was also started on metoprolol. Echocardiogram showed an ejection fraction of 55-60% with grade 1 diastolic dysfunction. He is progressing well and able to ambulate. He was determined stable for discharge home. He will follow-up with his primary care physician in 2-3 days as well as cardiology in 1 week. Patient can resume metformin on 12/07/19 Patient seen and examined at bedside. No chest pain, shortness breath, nausea, vomiting, or lightheadedness/dizziness. Vital signs reviewed and stable. General: non toxic, no distress, appears at stated age Derm: warm, dry Head: atraumatic, normocephalic, symmetric Eyes: EOMI, no lid lag, anicteric sclera Mouth: no lip lesion, mucus membranes moist Cardiovascular: S1S2 reg, no murmur, positive posterior tibial pulse bilateral, Lungs: CTA bilateral, no rhonchi, no rales , no accessory muscle use Abdominal: soft, nontender to palpation, no guarding, no appreciable or ganomegaly Ext: no gross muscle atrophy, no edema, no contractures Neuro: CN II-XI grossly intact, no focal neuro deficits Psych: Alert, oriented, appropriate affect A total of 25 minutes of time were spent preparing this complex discharge summary . Patient Condition at Discharge: Stable Plan - Discharge Summary Discharge Rx Participant: No New Discharge Prescriptions: New Aspirin 81 mg PO DAILY chew Atorvastatin [Lipitor] 80 mg PO HS #90 tab Metoprolol Tartrate [Lopressor] 12.5 mg PO BID #180 tab amLODIPine [Norvasc] 5 mg PO DAILY #90 tab Clopidogrel [Plavix] 75 mg PO DAILY #90 tab Continue hydrALAZINE HCL [Apresoline] 50 mg PO BID Losartan Potassium 100 mg PO DAILY metFORMIN HCL 850 mg PO BID Discontinued Atorvastatin [Lipitor] 10 mg PO HS amLODIPine [Norvasc] 10 mg PO DAILY Discharge Medication List Losartan Potassium 100 mg PO DAILY 12/05/19 [History] hydrALAZINE HCL [Apresoline] 50 mg PO BID 12/05/19 [History] metFORMIN HCL 850 mg PO BID 12/05/19 [History] Aspirin 81 mg PO DAILY chew 12/06/19 [Rx] Atorvastatin [Lipitor] 80 mg PO HS #90 tab 12/06/19 [Rx] Clopidogrel [Plavix] 75 mg PO DAILY #90 tab 12/06/19 [Rx] Metoprolol Tartrate [Lopressor] 12.5 mg PO BID #180 tab 12/06/19 [Rx] amLODIPine [Norvasc] 5 mg PO DAILY #90 tab 12/06/19 [Rx] Follow up Appointment(s)/Referral(s): Fei Farah MD [STAFF PHYSICIAN] - 12/13/19 2:15 pm Geovani Pulliam DO [Primary Care Provider] - 1-2 days Patient Instructions/Handouts: Heart Attack (DC), Chest Pain (ED), Left Heart Catheterization (DC), Heart Healthy Diet (DC), After Radial Heart Catheterization (GEN) Activity/Diet/Wound Care/Special Instructions: Activity: as tolerated Diet: heart healthy Special Instructions: Metformin can resume 12/07/2019 Discharge Disposition: HOME SELF-CARE
== END 2019-12-06 12:21 | disposition home or self-care (01) ==
LOC: EC 04:03 → 3NCARDOBS 05:53
PROVIDERS: ADMIT Internal Medicine; ATTEND Internal Medicine
DX: I21.4 Non-ST elevation (NSTEMI) myocardial infarction (principal); E11.65 Type 2 diabetes mellitus with hyperglycemia; I10 Essential (primary) hypertension; E78.5 Hyperlipidemia, unspecified; E87.2 Acidosis; R05 Cough; I25.110 Atherosclerotic heart disease of native coronary artery with unstable angina pectoris; E78.00 Pure hypercholesterolemia, unspecified; E66.9 Obesity, unspecified; Z68.32 Body mass index [BMI] 32.0-32.9, adult; I44.7 Left bundle-branch block, unspecified; I49.3 Ventricular premature depolarization; Z87.891 Personal history of nicotine dependence; F41.9 Anxiety disorder, unspecified; Z79.899 Other long term (current) drug therapy; Z79.84 Long term (current) use of oral hypoglycemic drugs; Z88.2 Allergy status to sulfonamides; Z20.828 Contact with and (suspected) exposure to other viral communicable diseases
CPT/HCPCS: 92928 ×2; 93005 ×2; 99285; 36415; 93306; 93458; 85379; 83880; 80061; 80053 ×2; 83690; 83735; 84484; 85025 ×2; 85610; 85730; 71046; G0378 ×2; C9600; C1887; C1725 ×2; C1769 ×2; C1874; C1894; U0003; J2250; J1644 ×3; J2001; J0583; Q9967